=== PATIENT | male | born 1940 | race Caucasian/White ===

== ENCOUNTER 2018-03-23 17:51 | Observation (INO) ==
[2018-03-23] MEDS ORDERED: ZOFRAN INJ 4 MG VIAL IVP PRN (18:28)
[2018-03-23 18:50] LABS: BASOPHILS % (AUTO) 0.4 % (0.2-1.0); EOSINOPHILS % (AUTO) 0.1 % (0.9-2.9); HEMATOCRIT 45.3 % (42.0-54.0); HEMOGLOBIN 15.6 g/dL (13.5-18.0); LYMPHOCYTES # (AUTO) 0.7 X10^3/uL (1.3-2.9); LYMPHOCYTES % (AUTO) 5.7 % (21.0-51.0); MEAN CORPUSCULAR HEMOGLOBIN 29.2 pg (27.0-34.0); MEAN CORPUSCULAR HGB CONC 34.5 g/dL (33.0-35.0); MEAN CORPUSCULAR VOLUME 84.6 fL (80.0-100.0); MEAN PLATELET VOLUME 8.2 fL (7.4-11.0); MONOCYTES # (AUTO) 0.6 x10^3/uL (0.3-0.8); MONOCYTES % (AUTO) 4.8 % (0.0-13.0); NEUTROPHILS # (AUTO) 10.5 x10^3/uL (2.2-4.8); PLATELET COUNT 171 X10^3/uL (150.0-450.0); RED BLOOD COUNT 5.36 X10^6/uL (4.7-6.0); RED CELL DISTRIBUTION WIDTH 14.8 % (11.6-16.5); WHITE BLOOD COUNT 11.8 X10^3/uL (3.6-10.0)
[2018-03-23] MEDS: NS 1000 ML 1,000 ML IV SCH (18:57)
[2018-03-23] MEDS: TYLENOL 325 MG TAB PO PRN (18:57)
[2018-03-23] MEDS: PHARMACY CONSULT - DOSE _____ XX SCH ×2 (18:57→19:34)
[2018-03-23 19:04] LABS: ALANINE AMINOTRANSFERASE 32 Units/L (12-78); ALBUMIN 3.8 g/dL (3.4-5.0); ALKALINE PHOSPHATASE 70 Units/L (46-116); ASPARTATE AMINO TRANSFERASE 18 Units/L (15-37); BLOOD UREA NITROGEN 23 mg/dL (7-18); CALCIUM 8.8 mg/dL (8.5-10.1); CARBON DIOXIDE 25.7 mmol/L (21-32); CHLORIDE 106 mmol/L (98-107); COR NA(FOR HYPERGLY) 139 mmol/L (136-145); CREATININE 1.46 mg/dL (0.70-1.30); SODIUM 139 mmol/L (136-145); TOTAL PROTEIN 7.2 g/dL (6.4-8.2); eGFR NON BLACK RACES 50 (>60)
[2018-03-23 20:56] LABS: BILIRUBIN,URINE 1+ (NEGATIVE); BLOOD/HEMOGLOBIN,URINE 1+ (NEGATIVE); GLUCOSE, URINE NEGATIVE (NEGATIVE); KETONES,URINE 1+ (NEGATIVE); LEUKOCYTE ESTERASE ,URINE 1+ (NEGATIVE); NITRITES,URINE NEGATIVE (NEGATIVE); PROTEIN,URINE 2+ (NEGATIVE); UROBILINOGEN,URINE 1+ (NORMAL)
[2018-03-23 21:07] LABS: APPEARANCE,URINE SLIGHTLY HAZY (CLEAR); BACTERIA,URINE 1+ /HPF (NEGATIVE); COLOR,URINE YELLOW (YELLOW); RBC,URINE 0-2 /HPF (NONE SEEN); SQUAMOUS EPITHELIAL CELL,UR RARE /HPF (NEGATIVE)
[2018-03-23 21:08] LABS: MUCUS,URINE MANY /HPF (NEGATIVE)
[2018-03-23] MEDS: ZOSYN VIAL 3.375 GRAMS 3.375 G in NS 100 ML IV + SPIKE MINIBAG* 100 ML IV SCH (21:56)
[2018-03-23 23:05] VITALS: BMI 38.0
[2018-03-24] MEDS: TYLENOL 325 MG TAB PO PRN (04:45)
[2018-03-24] MEDS: ZOSYN VIAL 3.375 GRAMS 3.375 G in NS 100 ML IV + SPIKE MINIBAG* 100 ML IV SCH ×3 (05:23→22:58)
[2018-03-24 06:30] LABS: BASOPHILS % (AUTO) 0.3 % (0.2-1.0); HEMATOCRIT 40.3 % (42.0-54.0); HEMOGLOBIN 13.8 g/dL (13.5-18.0); LYMPHOCYTES # (AUTO) 0.7 X10^3/uL (1.3-2.9); LYMPHOCYTES % (AUTO) 5.6 % (21.0-51.0); MEAN CORPUSCULAR HGB CONC 34.3 g/dL (33.0-35.0); MEAN CORPUSCULAR VOLUME 84.7 fL (80.0-100.0); MEAN PLATELET VOLUME 8.4 fL (7.4-11.0); MONOCYTES # (AUTO) 0.6 x10^3/uL (0.3-0.8); MONOCYTES % (AUTO) 4.9 % (0.0-13.0); NEUTROPHILS # (AUTO) 10.7 x10^3/uL (2.2-4.8); NEUTROPHILS % (AUTO) 89.2 % (42.0-75.0); PLATELET COUNT 142 X10^3/uL (150.0-450.0); RED BLOOD COUNT 4.76 X10^6/uL (4.7-6.0); RED CELL DISTRIBUTION WIDTH 14.7 % (11.6-16.5)
[2018-03-24 06:53] LABS: ALBUMIN 3.1 g/dL (3.4-5.0); CALCIUM 8.2 mg/dL (8.5-10.1); COR CA(FOR HYPOALB) 8.9 mg/dL (8.5-10.1); CREATININE 1.47 mg/dL (0.70-1.30); TOTAL PROTEIN 6.3 g/dL (6.4-8.2)
[2018-03-24] MEDS ORDERED: POTASSIUM CHL 60 MEQ/NS 0.45% 500 ML IV PRN ×2 (06:59→22:37)
[2018-03-24] MEDS ORDERED: POTASSIUM CHLORIDE LIQ 20 MEQ UDC PO PRN ×2 (06:59→22:37)
[2018-03-24] MEDS ORDERED: POTASSIUM CHL 40 MEQ/NS 0.45% 500 ML IV PRN ×2 (06:59→22:37)
[2018-03-24] MEDS ORDERED: MAGNESIUM SULFATE 1 GRAM/100 mL PREMIX 1 GM/100 ML BAG IV PRN (06:59)
[2018-03-24] MEDS ORDERED: K-RIDER 10 MEQ/NS 100 ML 10 MEQ/100 ML BAG IV PRN ×2 (06:59→22:37)
[2018-03-24] MEDS ORDERED: K-RIDER 10 MEQ/NS 100 ML 0 MEQ/0 ML BAG IV ONE (07:00)
[2018-03-24] MEDS ORDERED: POTASSIUM CHL 40 MEQ/NS 0.45% 500 ML 40 MEQ/500 ML BAG IV ONE (07:21)
[2018-03-24] MEDS ORDERED: PROSCAR PO SCH ×2 (09:00→21:00)
[2018-03-24] MEDS ORDERED: PriLOSEC PO SCH ×2 (09:00→21:00)
[2018-03-24] MEDS: NS 1000 ML 1,000 ML IV SCH ×2 (09:27→22:59)
[2018-03-24] MEDS: FLONASE NASAL SPRAY ENOSTRIL SCH (09:34)
[2018-03-24] MEDS: PLAVIX PO SCH (09:34)
[2018-03-24] MEDS: ZYLOPRIM PO SCH (09:34)
[2018-03-24] MEDS: CLARITIN-D 12 HOUR TAB PO SCH ×2 (09:40→21:57)
[2018-03-24] MEDS ORDERED: TORADOL 15 MG VIAL IVP PRN (09:43)
[2018-03-24] MEDS ORDERED: LOMOTIL PO PRN (10:00)
[2018-03-24] MEDS ORDERED: CHOLECALCIFEROL PO SCH (10:15)
--- NOTE | 2018-03-24 10:28 | RAD ---
History: Shortness of breath, fever Study: Chest single view Findings: AP portable view of the chest is compared to the previous study of 10/19/2013. Heart and me diastinal structures maintain a satisfactory appearance. Lungs and pleural spaces are clear. Impression: Normal chest. Reported By:
[2018-03-24] MEDS ORDERED: TORADOL 15 MG VIAL ONE ×2 (11:06→16:43)
[2018-03-24] MEDS: CIPRO IV 400 MG PREMIX* 400 MG/200 ML IV.SOLN. IV SCH ×2 (11:08→21:56)
[2018-03-24] MEDS: TORADOL 15 MG VIAL IVP SCH ×3 (11:09→22:47)
[2018-03-24] MEDS: COLCRYS TAB 0.6 MG PO SCH (13:40)
[2018-03-24] MEDS: TYLENOL 500 MG TAB EXTRA STRENGTH PO SCH ×2 (14:15→22:57)
[2018-03-24 14:35] LABS: STOOL FOR WBC POSITIVE (NEGATIVE)
[2018-03-24 14:36] LABS: CRYPTOSPORIDIUM PARVUM ANTIGEN NEGATIVE (NEGATIVE); GIARDIA LAMBLIA ANTIGEN NEGATIVE (NEGATIVE)
[2018-03-24] MEDS ORDERED: LIPITOR TAB 40 MG PO SCH (21:00)
[2018-03-24] MEDS ORDERED: CRESTOR TAB 10 MG PO SCH (21:00)
[2018-03-24] MEDS ORDERED: CARDURA PO SCH (21:00)
[2018-03-24] MEDS ORDERED: VITAMIN D3 PO SCH (21:00)
[2018-03-24] MEDS ORDERED: PROCARDIA XL PO SCH (21:00)
[2018-03-24] MEDS ORDERED: K-LYTE EFFERVESCENT PO PRN (22:37)
[2018-03-24] MEDS: NS 1/2 1000 ML IV 1,000 ML IV ONE ×2 (23:03→23:52)
[2018-03-25] MEDS: K-LYTE EFFERVESCENT PO PRN ×2 (04:00→09:59)
[2018-03-25] MEDS: TYLENOL 500 MG TAB EXTRA STRENGTH PO SCH (06:03)
[2018-03-25] MEDS: ZOSYN VIAL 3.375 GRAMS 3.375 G in NS 100 ML IV + SPIKE MINIBAG* 100 ML IV SCH (06:04)
[2018-03-25 06:11] LABS: BASOPHILS % (AUTO) 0.2 % (0.2-1.0); EOSINOPHILS # (AUTO) 0.1 x10^3/uL (0.0-0.2); EOSINOPHILS % (AUTO) 0.9 % (0.9-2.9); HEMATOCRIT 39.7 % (42.0-54.0); HEMOGLOBIN 13.8 g/dL (13.5-18.0); LYMPHOCYTES # (AUTO) 1.2 X10^3/uL (1.3-2.9); LYMPHOCYTES % (AUTO) 15.9 % (21.0-51.0); MEAN CORPUSCULAR HEMOGLOBIN 29.2 pg (27.0-34.0); MEAN CORPUSCULAR HGB CONC 34.8 g/dL (33.0-35.0); MEAN CORPUSCULAR VOLUME 83.8 fL (80.0-100.0); MEAN PLATELET VOLUME 8.5 fL (7.4-11.0); MONOCYTES # (AUTO) 0.5 x10^3/uL (0.3-0.8); MONOCYTES % (AUTO) 6.4 % (0.0-13.0); NEUTROPHILS # (AUTO) 5.9 x10^3/uL (2.2-4.8); NEUTROPHILS % (AUTO) 76.6 % (42.0-75.0); PLATELET COUNT 126 X10^3/uL (150.0-450.0); RED BLOOD COUNT 4.74 X10^6/uL (4.7-6.0); RED CELL DISTRIBUTION WIDTH 14.6 % (11.6-16.5); WHITE BLOOD COUNT 7.8 X10^3/uL (3.6-10.0)
[2018-03-25 06:12] LABS: ALANINE AMINOTRANSFERASE 32 Units/L (12-78); ALBUMIN 2.7 g/dL (3.4-5.0); ALKALINE PHOSPHATASE 56 Units/L (46-116); ASPARTATE AMINO TRANSFERASE 28 Units/L (15-37); BLOOD UREA NITROGEN 17 mg/dL (7-18); CARBON DIOXIDE 25.5 mmol/L (21-32); CHLORIDE 110 mmol/L (98-107); CREATININE 1.12 mg/dL (0.70-1.30); SODIUM 141 mmol/L (136-145); TOTAL PROTEIN 5.9 g/dL (6.4-8.2); eGFR NON BLACK RACES > 60 (>60)
[2018-03-25 06:44] LABS: PLATELET MORPHOLOGY COMMENT NORMAL (NORMAL)
[2018-03-25 08:04] VITALS: BP 133/73
[2018-03-25] MEDS: CIPRO IV 400 MG PREMIX* 400 MG/200 ML IV.SOLN. IV SCH (08:43)
[2018-03-25] MEDS: ZYLOPRIM PO SCH (08:44)
[2018-03-25] MEDS: FLONASE NASAL SPRAY ENOSTRIL SCH (08:44)
[2018-03-25] MEDS: PLAVIX PO SCH (08:44)
[2018-03-25] MEDS: COLCRYS TAB 0.6 MG PO SCH (08:44)
[2018-03-25] MEDS: CLARITIN-D 12 HOUR TAB PO SCH (08:45)
--- NOTE | 2018-05-28 21:25 | DR.CARTERD ---
- Discharge Summary for: Discharge Summary for Date of:: 03/25/18 - Admission Date Date of Admission: 03/23/18 - Admission Diagnoses Admission Diagnosis: 1- Cellulitis 2- Fever 3- Nausea 4- Chills - Discharge Date Discharge Date: 03/25/18 - Discharge Diagnoses Discharge Diagnosis: 1- Cellulitis 2- Campylobacter infection 3- Fever 4- Nausea 5- Chills - Hospital Course Hospital Course: Mr. Dominguez presented to the [facility] as a direct admit from the services of Dr. Trujillo with complaints of a rash on his back. Other symptoms included fever, nausea, sweating, and chills. He reported that it was worsening. Spot on back was noted to be red in color. On arrival to hospital vitals were Temp-101.3, HR-98, Resp-20, O2 SAT-95% RA, BP-190/88. Medical HX: Retinal tears, CVA, HTN, GERD, Kidney Stones, Angioplasty/Stents. Labs were drawn and revealed: WBC 11.8, Potassium 3.4, BUN 23, Creatinine 1.46, GFR (NON) 50, Glucose 115. A chest x-ray revealed: Normal chest. Patient started on NS 1000 MLS IV @ 75 MLS/HR for gentle IV hydration, Zosyn 3.375 GM IV TID for antibiotic therapy, Zofran 4 MG IVP Q8h PRN for nausea. We collected a urine culture along with two blood cultures and sent to lab for results. We continued to monitor. Medications: NS 1000 MLS IV @ 75 MLS/HR, Zosyn 3.375 GM IV TID, Zofran 4 MG IVP Q8h PRN, Tylenol 650 MG PO Q4H PRN. We continued treatment and on day two, patient reported diarrhea. We collected a stool sample with culture. On day three, patient was noted with improvement in symptoms. Stool culture was positive for campylobacter species. Urine and blood cultures negative. Cellulitis to back noted with improvement. Vital signs stable. Labs wnl. We plan gaurang for discharge with Cipro and Lomotil. Instructions for medications and follow up were discussed with patient and family, both voiced understanding. Patient discharged home in stable condition with family. Labs: Microbiology 03/24/18 13:35 Stool Stool Culture - Final 03/24/18 13:35 Stool - Final Campylobacter Species - Discharge Medications Discharge Medications: Home Medication List allopurinol 1 tab PO AC 03/23/18 [History] aspirin 1 tab PO DAILY 03/23/18 [History] cholecalciferol (vitamin D3) [Vitamin D3] 3 tab PO DAILY 03/23/18 [History] clopidogrel 1 tab PO DAILY 03/23/18 [History] colchicine 0.6 mg PO DAILY 03/23/18 [History] doxazosin 1 tab PO HS 03/23/18 [History] finasteride 1 tab PO DAILY 03/23/18 [History] fluticasone 2 spr INTRANASAL DAILY PRN 03/23/18 [History] nifedipine 1 tab PO DAILY 03/23/18 [History] omeprazole 1 cap PO DAILY 03/23/18 [History] [id number] [Mucinex Sinus-Max Sev Congestn] 1 tab PO HS 03/23/18 [History] rosuvastatin 1 tab PO HS 03/23/18 [History] ciprofloxacin HCl [Cipro] 500 mg PO BID #28 tab 03/25/18 [Rx] diphenoxylate-atropine [Lomotil] 1 tab PO QID PRN #20 tab 03/25/18 [Rx] Prescriptions: ciprofloxacin HCl [Cipro] Candido Trujillo diphenoxylate-atropine [Lomotil] Candido Trujillo - Discharge Disposition Discharge Disposition: Patient is to follow up in our office in one week.
== END 2018-03-25 12:05 | disposition home or self-care (01) ==
LOC: OBS
PROVIDERS: ADMIT Internal Medicine; ATTEND Internal Medicine
DX: R94.4 Abnormal results of kidney function studies; A04.5 Campylobacter enteritis; D72.828 Other elevated white blood cell count; R50.9 Fever, unspecified; L03.319 Cellulitis of trunk, unspecified; I10 Essential (primary) hypertension; T63.301A Toxic effect of unspecified spider venom, accidental (unintentional), initial encounter
CPT/HCPCS: 36415; 71010; 71045; 80053; 81001; 82270; 83605; 83630; 83735; 84132; 85025; 87040; 87045; 87086; 87328; 87329; 87427; 87449; 87493; 87899; A4222; S0138; G0378; J0744; J1885; J2405; J2543; J3480; J3490; J7030; J7050; J8499